=== PATIENT | male | born 1960 | race Caucasian/White ===

== ENCOUNTER 2017-10-09 17:02 | Inpatient (IN) | payer OTHER ==
[~2017-10-09] VITALS: Ht 177.8 cm; Wt 84.4 kg
[2017-10-09] MEDS ORDERED: DOCUSATE SODIUM 283 MG/5 ML MINI-ENEMA PR PRN (18:15)
[2017-10-09 18:25] VITALS: BP 112/70
[2017-10-09 19:40] VITALS: BP 114/78
[2017-10-09] MEDS ORDERED: MELATONIN 3 MG TABLET PO PRN (20:00)
[2017-10-09] MEDS ORDERED: MAG HYDROX/AL HYDROX/SIMETH 30 ML SUSP UDCUP PO PRN (20:00)
[2017-10-09] MEDS: LACOSAMIDE 100 MG TABLET PO SCH (20:30)
[2017-10-09] MEDS: LORazepam 0.5 MG TABLET PO SCH (20:31)
[2017-10-09] MEDS: LORazepam 0.5 MG TABLET PO PRN (20:32)
[2017-10-09] MEDS: DOCUSATE SODIUM 100 MG CAPSULE PO SCH (20:32)
[2017-10-09] MEDS: SODIUM CHLORIDE 0.65% 44 ML NASAL SPRAY NASAL SCH (20:32)
[2017-10-09] MEDS: SENNA 187 MG TABLET PO SCH (20:32)
[2017-10-09] MEDS: FLUTICASONE PROPIONATE 50 MCG/SPRAY 16 GM NASAL SPRAY NASAL SCH (20:32)
[2017-10-09 20:37] LABS: APPEARANCE,URINE CLEAR (CLEAR); BILIRUBIN,URINE NEGATIVE (NEGATIVE); GLUCOSE, URINE (UA) NEGATIVE (NEGATIVE); KETONES,URINE NEGATIVE (NEGATIVE); LEUKOCYTE ESTERASE ,URINE NEGATIVE (NEGATIVE); NITRATE,URINE NEGATIVE (NEGATIVE); OCCULT BLOOD,URINE NEGATIVE (NEGATIVE); PH,URINE 5.5 (5.0-8.0); PROTEIN,URINE NEGATIVE (NEGATIVE); UROBILINOGEN,URINE 0.2 mg/dL (<=1.0)
[2017-10-09] MEDS ORDERED: LevETIRAcetam 500 MG TABLET PO SCH (21:00)
[2017-10-10] VITALS: BP 108/66
[2017-10-10] MEDS: PANTOPRAZOLE SODIUM 40 MG DR TABLET PO SCH (05:38)
[2017-10-10 06:45] LABS: BASOPHILS % (AUTO) 0.8 % (0.0-2.0); EOSINOPHILS % (AUTO) 2.7 % (1.0-6.0); HEMATOCRIT 35.5 % (41-53); HEMOGLOBIN 11.7 g/dL (13.5-17.5); LYMPHOCYTES # (AUTO) 0.5 K/uL (1.0-4.8); LYMPHOCYTES % (AUTO) 12.3 % (22.0-44.0); MEAN CORPUSCULAR HGB CONC 33.1 G/dL (31.0-37.0); MEAN CORPUSCULAR VOLUME 100 fL (80-100); MONOCYTES # (AUTO) 0.8 K/uL (0.1-1.0); MONOCYTES % (AUTO) 19.5 % (2.0-9.0); NEUTROPHILS # (AUTO) 2.6 K/uL (1.8-7.7); NEUTROPHILS % (AUTO) 64.7 % (40.0-70.0); PLATELET COUNT (AUTO) 159 K/uL (150-450); RED BLOOD CELL COUNT(AUTO) 3.55 MIL/uL (4.50-5.90); RED CELL DISTRIBUTION WIDTH 15.9 % (11.5-14.5)
[2017-10-10 07:07] LABS: ALANINE AMINOTRANSFERASE 61 U/L (12-78); ALBUMIN 2.9 g/dL (3.4-5.0); ALKALINE PHOSPHATASE 225 U/L (46-116); ANION GAP 11 mmol/L (8-16); ASPARTATE AMINOTRANSFERASE 36 U/L (15-37); BILIRUBIN,TOTAL 0.3 mg/dL (0.1-1.0); CALCIUM, TOTAL 8.6 mg/dL (8.8-10.5); CARBON DIOXIDE 25 mmol/L (22-29); CHLORIDE 107 mmol/L (98-107); CREATININE 0.97 mg/dL (0.60-1.30); GLOMERULAR FILTR. RATE CALC > 60 mL/min (>60); GLUCOSE,RANDOM 90 mg/dL (70-110); POTASSIUM 3.7 mmol/L (3.5-5.1); SODIUM SERUM 143 mmol/L (136-145); TOTAL PROTEIN, SERUM 5.6 g/dL (6.4-8.2); UREA NITROGEN, BLOOD 11 mg/dL (7-18)
[2017-10-10 07:30] VITALS: BP 115/61
[2017-10-10] MEDS: DOCUSATE SODIUM 100 MG CAPSULE PO SCH ×2 (07:59→20:45)
[2017-10-10] MEDS: LACOSAMIDE 100 MG TABLET PO SCH ×2 (08:00→20:46)
[2017-10-10] MEDS: SERTRALINE HCL 100 MG TABLET PO SCH (08:00)
[2017-10-10] MEDS: FLUTICASONE PROPIONATE 50 MCG/SPRAY 16 GM NASAL SPRAY NASAL SCH ×2 (08:01→20:45)
[2017-10-10] MEDS: ENOXAPARIN SODIUM 60 MG/0.6 ML PF SYRINGE SQ SCH (08:01)
[2017-10-10] MEDS: FUROSEMIDE 40 MG TABLET PO SCH (08:02)
[2017-10-10] MEDS: SODIUM CHLORIDE 0.65% 44 ML NASAL SPRAY NASAL SCH ×2 (08:02→20:45)
[2017-10-10] MEDS ORDERED: POTASSIUM CHLORIDE 10% 40 MEQ/30 ML LIQUID UDCUP PO SCH (09:00)
[2017-10-10 16:27] VITALS: BP 103/72
[2017-10-10] MEDS ORDERED: LEVETIRACETAM 750 MG CLINICAL SCH (17:00)
[2017-10-10] MEDS ORDERED: KEPPRA 750 MG CLINICAL SCH (17:00)
[2017-10-10] MEDS ORDERED: LevETIRAcetam 500 MG TABLET PO SCH (18:00)
[2017-10-10] MEDS ORDERED: LORazepam 0.5 MG TABLET PO ONE ×2 (18:45→19:30)
[2017-10-10] MEDS: LEVETIRACETAM 750 MG PO SCH (19:12)
[2017-10-10] MEDS: LORazepam 0.5 MG TABLET PO SCH ×2 (20:46→21:00)
[2017-10-10] MEDS: SENNA 187 MG TABLET PO SCH (20:46)
[2017-10-10] MEDS: LORazepam 0.5 MG TABLET PO PRN (22:17)
[2017-10-11 00:39] VITALS: BP 105/54
[2017-10-11] MEDS: PANTOPRAZOLE SODIUM 40 MG DR TABLET PO SCH (05:12)
[2017-10-11 07:45] VITALS: BP 110/68
[2017-10-11] MEDS: ENOXAPARIN SODIUM 60 MG/0.6 ML PF SYRINGE SQ SCH (08:36)
[2017-10-11] MEDS: LACOSAMIDE 100 MG TABLET PO SCH ×2 (08:36→20:54)
[2017-10-11] MEDS: SODIUM CHLORIDE 0.65% 44 ML NASAL SPRAY NASAL SCH ×2 (08:37→20:54)
[2017-10-11] MEDS: FUROSEMIDE 40 MG TABLET PO SCH (08:37)
[2017-10-11] MEDS: FLUTICASONE PROPIONATE 50 MCG/SPRAY 16 GM NASAL SPRAY NASAL SCH ×2 (08:37→20:54)
[2017-10-11] MEDS: SERTRALINE HCL 100 MG TABLET PO SCH (08:38)
[2017-10-11] MEDS: DOCUSATE SODIUM 100 MG CAPSULE PO SCH (08:38)
[2017-10-11] MEDS: POTASSIUM CHLORIDE 20 MEQ ER TABLET PO SCH (11:10)
[2017-10-11] MEDS: MUPIROCIN CALCIUM 2% 22 GM OINTMENT TP SCH ×2 (11:10→20:54)
[2017-10-11] MEDS ORDERED: LORA0.5T2 PO (14:58)
[2017-10-11] MEDS ORDERED: FLUT16H NASAL (14:58)
[2017-10-11] MEDS ORDERED: LACO100 PO (14:58)
[2017-10-11] MEDS ORDERED: LANS30 PO (14:58)
[2017-10-11] MEDS ORDERED: MELA3TAB66 PO (14:58)
[2017-10-11] MEDS ORDERED: LEVE250T55 PO (14:58)
[2017-10-11] MEDS ORDERED: KCL10IV PO (14:58)
[2017-10-11] MEDS ORDERED: FURO40 PO (14:58)
[2017-10-11] MEDS ORDERED: SIME80 PO (14:58)
[2017-10-11] MEDS ORDERED: SENN-175 PO (14:58)
[2017-10-11 15:22] VITALS: BP 107/71
[2017-10-11] MEDS: LEVETIRACETAM 750 MG PO SCH (16:07)
[2017-10-11] MEDS ORDERED: LORazepam 0.5 MG TABLET PO ONE (17:00)
[2017-10-11] MEDS: DOCUSATE SODIUM 250 MG CAPSULE PO SCH (20:54)
[2017-10-11] MEDS: LORazepam 0.5 MG TABLET PO SCH (20:54)
[2017-10-11] MEDS: SENNA 187 MG TABLET PO SCH (20:54)
[2017-10-12] VITALS: BP 102/70
[2017-10-12 07:28] VITALS: BP 117/69
[2017-10-12] MEDS: SODIUM CHLORIDE 0.65% 44 ML NASAL SPRAY NASAL SCH ×2 (08:14→20:32)
[2017-10-12] MEDS: FLUTICASONE PROPIONATE 50 MCG/SPRAY 16 GM NASAL SPRAY NASAL SCH ×2 (08:14→20:31)
[2017-10-12] MEDS: ENOXAPARIN SODIUM 60 MG/0.6 ML PF SYRINGE SQ SCH (08:14)
[2017-10-12] MEDS: MUPIROCIN CALCIUM 2% 22 GM OINTMENT TP SCH ×2 (08:14→20:31)
[2017-10-12] MEDS: POTASSIUM CHLORIDE 20 MEQ ER TABLET PO SCH (08:15)
[2017-10-12] MEDS: ACETAMINOPHEN 325 MG TABLET PO PRN (08:15)
[2017-10-12] MEDS: LACOSAMIDE 100 MG TABLET PO SCH ×2 (08:15→20:31)
[2017-10-12] MEDS: DOCUSATE SODIUM 250 MG CAPSULE PO SCH ×2 (08:15→20:31)
[2017-10-12] MEDS: SERTRALINE HCL 100 MG TABLET PO SCH (08:15)
[2017-10-12] MEDS: SULFAMETHOX/TRIMETH DS 800-160 MG/TABLET PO SCH (08:16)
[2017-10-12] MEDS: FUROSEMIDE 40 MG TABLET PO SCH (08:16)
[2017-10-12] MEDS: PANTOPRAZOLE SODIUM 40 MG DR TABLET PO SCH (08:16)
[2017-10-12] MEDS ORDERED: LORazepam 0.5 MG TABLET PO PRN (12:00)
[2017-10-12] MEDS ORDERED: KDUR20 PO (12:04)
[2017-10-12 15:34] VITALS: BP 121/81
[2017-10-12] MEDS: LEVETIRACETAM 750 MG PO SCH (17:35)
[2017-10-12] MEDS: LORazepam 0.5 MG TABLET PO SCH ×2 (20:30→20:37)
[2017-10-12] MEDS: SENNA 187 MG TABLET PO SCH (20:31)
[2017-10-13] VITALS: BP 107/61
[2017-10-13 07:05] VITALS: BP 104/67
[2017-10-13] MEDS: LACOSAMIDE 100 MG TABLET PO SCH ×2 (08:28→20:22)
[2017-10-13] MEDS: DOCUSATE SODIUM 250 MG CAPSULE PO SCH ×2 (08:28→20:23)
[2017-10-13] MEDS: PANTOPRAZOLE SODIUM 40 MG DR TABLET PO SCH (08:28)
[2017-10-13] MEDS: POTASSIUM CHLORIDE 20 MEQ ER TABLET PO SCH (08:28)
[2017-10-13] MEDS: FUROSEMIDE 40 MG TABLET PO SCH (08:28)
[2017-10-13] MEDS: SERTRALINE HCL 100 MG TABLET PO SCH (08:29)
[2017-10-13] MEDS: ENOXAPARIN SODIUM 60 MG/0.6 ML PF SYRINGE SQ SCH (08:29)
[2017-10-13] MEDS: MUPIROCIN CALCIUM 2% 22 GM OINTMENT TP SCH ×2 (08:29→20:22)
[2017-10-13] MEDS: SODIUM CHLORIDE 0.65% 44 ML NASAL SPRAY NASAL SCH ×2 (08:30→20:22)
[2017-10-13] MEDS: FLUTICASONE PROPIONATE 50 MCG/SPRAY 16 GM NASAL SPRAY NASAL SCH ×2 (08:30→20:22)
[2017-10-13] MEDS ORDERED: GuaiFENesin [SUGAR-FREE] 200 MG/10 ML SOLUTION UDCUP PO PRN (12:15)
[2017-10-13 15:00] VITALS: BP 100/70
[2017-10-13] MEDS: LEVETIRACETAM 750 MG PO SCH (17:00)
[2017-10-13] MEDS: SENNA 187 MG TABLET PO SCH (20:22)
[2017-10-13] MEDS: LORazepam 0.5 MG TABLET PO SCH (20:23)
[2017-10-14 00:45] VITALS: BP 107/69
[2017-10-14 07:15] VITALS: BP 104/66
[2017-10-14] MEDS: PANTOPRAZOLE SODIUM 40 MG DR TABLET PO SCH (07:49)
[2017-10-14] MEDS: FLUTICASONE PROPIONATE 50 MCG/SPRAY 16 GM NASAL SPRAY NASAL SCH ×2 (08:34→20:35)
[2017-10-14] MEDS: MUPIROCIN CALCIUM 2% 22 GM OINTMENT TP SCH ×2 (08:34→20:35)
[2017-10-14] MEDS: SODIUM CHLORIDE 0.65% 44 ML NASAL SPRAY NASAL SCH ×2 (08:34→20:35)
[2017-10-14] MEDS: ENOXAPARIN SODIUM 60 MG/0.6 ML PF SYRINGE SQ SCH (08:35)
[2017-10-14] MEDS: LACOSAMIDE 100 MG TABLET PO SCH ×2 (08:35→20:34)
[2017-10-14] MEDS: SULFAMETHOX/TRIMETH DS 800-160 MG/TABLET PO SCH (08:35)
[2017-10-14] MEDS: DOCUSATE SODIUM 250 MG CAPSULE PO SCH ×2 (08:35→20:34)
[2017-10-14] MEDS: FUROSEMIDE 40 MG TABLET PO SCH (08:35)
[2017-10-14] MEDS: SERTRALINE HCL 100 MG TABLET PO SCH (08:35)
[2017-10-14] MEDS: POTASSIUM CHLORIDE 20 MEQ ER TABLET PO SCH (08:35)
[2017-10-14 16:53] VITALS: BP 102/67
[2017-10-14] MEDS: LEVETIRACETAM 750 MG PO SCH (17:17)
[2017-10-14] MEDS: LORazepam 0.5 MG TABLET PO SCH (20:34)
[2017-10-14] MEDS: SENNA 187 MG TABLET PO SCH (20:35)
[2017-10-15 01:17] VITALS: BP 120/64
[2017-10-15] MEDS: ACETAMINOPHEN 325 MG TABLET PO PRN (01:55)
[2017-10-15] MEDS ORDERED: SULF1TAB42 PO (07:10)
[2017-10-15] MEDS ORDERED: PANT40TA25 PO (07:10)
[2017-10-15] MEDS ORDERED: MUPI1OIN4 NS (07:14)
[2017-10-15] MEDS ORDERED: SERT100T12 PO (07:14)
[2017-10-15] MEDS ORDERED: SODI44SP18 NASAL (07:14)
[2017-10-15] MEDS ORDERED: DOCU250C91 PO (07:14)
[2017-10-15 07:30] VITALS: BP 102/64
[2017-10-15] MEDS: DOCUSATE SODIUM 250 MG CAPSULE PO SCH (08:12)
[2017-10-15] MEDS: PANTOPRAZOLE SODIUM 40 MG DR TABLET PO SCH (08:12)
[2017-10-15] MEDS: SODIUM CHLORIDE 0.65% 44 ML NASAL SPRAY NASAL SCH (08:12)
[2017-10-15] MEDS: POTASSIUM CHLORIDE 20 MEQ ER TABLET PO SCH (08:12)
[2017-10-15] MEDS: ENOXAPARIN SODIUM 60 MG/0.6 ML PF SYRINGE SQ SCH (08:12)
[2017-10-15] MEDS: MUPIROCIN CALCIUM 2% 22 GM OINTMENT TP SCH (08:12)
[2017-10-15] MEDS: FLUTICASONE PROPIONATE 50 MCG/SPRAY 16 GM NASAL SPRAY NASAL SCH (08:12)
[2017-10-15] MEDS: LACOSAMIDE 100 MG TABLET PO SCH (08:13)
[2017-10-15] MEDS: FUROSEMIDE 40 MG TABLET PO SCH (08:13)
[2017-10-15] MEDS: SERTRALINE HCL 100 MG TABLET PO SCH (08:13)
[2017-10-15] MEDS ORDERED: ENOX60DI8 SQ (10:41)
== END 2017-10-15 12:30 | disposition home or self-care (01) | DRG 55 ==
LOC: 2WR 17:30
PROVIDERS: ADMIT Physical Medicine & Rehabilitation
DX: C71.9 Malignant neoplasm of brain, unspecified (principal); I67.82 Cerebral ischemia; E44.0 Moderate protein-calorie malnutrition; G81.94 Hemiplegia, unspecified affecting left nondominant side; F40.240 Claustrophobia; G40.909 Epilepsy, unspecified, not intractable, without status epilepticus; F41.9 Anxiety disorder, unspecified; D64.9 Anemia, unspecified; F32.9 Major depressive disorder, single episode, unspecified; D72.819 Decreased white blood cell count, unspecified; Z86.718 Personal history of other venous thrombosis and embolism; Z91.010 Allergy to peanuts; Z68.26 Body mass index [BMI] 26.0-26.9, adult; Z80.6 Family history of leukemia; Z82.49 Family history of ischemic heart disease and other diseases of the circulatory system; Z91.011 Allergy to milk products; Z86.711 Personal history of pulmonary embolism
CPT/HCPCS: 87081; 92507; 92523; 93970; 97110; 97112; 97116; 97163; 97167; 97530; 97535; 99366; J1650